=== PATIENT | female | born 1990 | race Caucasian/White ===

== ENCOUNTER 2017-02-23 18:27 | Emergency (ER) | payer BC, MEDICAID ==
[~2017-02-23 18:27] MED LIST: CELEXA20 MG PO; XANAX0.5 M1 PO
[2017-02-23] MEDS ORDERED: ADVIL 200MG TA200 MG PO (19:07)
[2017-02-23] MEDS ORDERED: ALPRAZOLAM0.25 MG (19:30)
[2017-02-23 21:56] VITALS: BP 110/70
== END 2017-02-23 21:56 | disposition home or self-care (01) ==
LOC: ED 18:27
DX: O86.0 Infection of obstetric surgical wound (principal); Z98.890 Other specified postprocedural states
CPT/HCPCS: J7030; Q9967

== ENCOUNTER → 2017-02-25 | Outpatient (CLI) | payer BC, MEDICAID ==
[2017-02-23 21:56] VITALS: BP 110/70
[~2017-02-25] MED LIST changes: +ADVIL 200MG TA200 MG PO; +ALPRAZOLAM0.25 MG
== END ==
LOC: LAB 15:09
DX: D72.829 Elevated white blood cell count, unspecified (principal)

== ENCOUNTER → 2017-02-27 | Outpatient (CLI) | payer BC, MEDICAID ==
[2017-02-23 21:56] VITALS: BP 110/70
== END ==
LOC: LAB 08:50
DX: D72.829 Elevated white blood cell count, unspecified (principal); L02.211 Cutaneous abscess of abdominal wall

== ENCOUNTER 2018-09-29 21:15 | Emergency (ER) | payer BC, MEDICAID | END 2018-09-29 21:40 | disposition left against medical advice (07) | LOC: ED 21:15 | DX: R07.89 Other chest pain (principal); Z53.21 Procedure and treatment not carried out due to patient leaving prior to being seen by health care provider ==

== ENCOUNTER 2019-02-11 22:49 | Emergency (ER) | payer BC ==
[2019-02-11] MEDS ORDERED: INDERAL 10MG10 MG PO (22:58)
[2019-02-11] MEDS ORDERED: HYDROXYZINE HCL25 M1 PO (22:59)
[2019-02-11] MEDS ORDERED: SERTRALINE50 MG PO (22:59)
[2019-02-12] MEDS ORDERED: ALPRAZOLAM0.25 MG PO (00:16)
[2019-02-12 00:23] VITALS: BP 103/71
== END 2019-02-12 00:24 | disposition home or self-care (01) ==
LOC: ED 22:49
DX: F41.0 Panic disorder [episodic paroxysmal anxiety] (principal); F41.1 Generalized anxiety disorder; K21.9 Gastro-esophageal reflux disease without esophagitis

== ENCOUNTER 2020-04-15 01:57 | Emergency (ER) | payer BC ==
[~2020-04-15 01:57] MED LIST changes: +ALPRAZOLAM0.25 MG PO; +HYDROXYZINE HCL25 M1 PO; +INDERAL 10MG10 MG PO; +SERTRALINE50 MG PO
[2020-04-15 04:30] VITALS: BP 116/69
== END 2020-04-15 04:33 | disposition home or self-care (01) ==
LOC: ED 01:57
DX: S06.0X0A Concussion without loss of consciousness, initial encounter (principal); S00.03XA Contusion of scalp, initial encounter; W10.9XXA Fall (on) (from) unspecified stairs and steps, initial encounter; Y92.009 Unspecified place in unspecified non-institutional (private) residence as the place of occurrence of the external cause

== ENCOUNTER → 2021-08-19 | Outpatient (CLI) | payer BC | LOC: RAD 13:30 | DX: R51.9 Headache, unspecified (principal) ==